=== PATIENT | female | born 1940 | race African-American/Black ===

== ENCOUNTER 2024-10-12 08:47 | Outpatient (CLI) | payer MEDICARE, BC | END 2024-10-12 08:48 | disposition home or self-care (01) | LOC: MRI 08:47 | PROVIDERS: ATTEND Family Medicine Sports Medicine | DX: M47.816 Spondylosis without myelopathy or radiculopathy, lumbar region (principal); M47.812 Spondylosis without myelopathy or radiculopathy, cervical region | CPT/HCPCS: 72141; 72148 ==